=== PATIENT | male | born 1990 | race Caucasian/White ===

== ENCOUNTER 2017-06-26 20:16 | Emergency (ER) | payer OTHER ==
[~2017-06-26] VITALS: Ht 175.3 cm; Wt 86.4 kg
[~2017-06-26 20:16] MED LIST: NO HOME MEDICATIONS; ZOFRAN8 MG PO
[2017-06-26 20:22] VITALS: TEMP 98.5
[2017-06-26 21:28] VITALS: BP 123/80; PULSE 68
== END 2017-06-26 21:31 | disposition home or self-care (01) ==
LOC: COL.ER 20:16
DX: S61.011A Laceration without foreign body of right thumb without damage to nail, initial encounter (principal); S00.81XA Abrasion of other part of head, initial encounter; Z87.891 Personal history of nicotine dependence; W26.8XXA Contact with other sharp object(s), not elsewhere classified, initial encounter; Y92.009 Unspecified place in unspecified non-institutional (private) residence as the place of occurrence of the external cause

== ENCOUNTER 2017-07-10 10:49 | Emergency (ER) | payer OTHER ==
[2017-07-10 11:13] VITALS: BP 122/70; PULSE 59; TEMP 98.8
== END 2017-07-10 11:16 | disposition home or self-care (01) ==
LOC: COL.ER 10:49
DX: S61.011D Laceration without foreign body of right thumb without damage to nail, subsequent encounter (principal); X58.XXXD Exposure to other specified factors, subsequent encounter